=== PATIENT | female | born 1930 | race Caucasian/White ===

== ENCOUNTER → 2018-05-17 | Emergency (ER) | payer MEDICARE, BC ==
[~2018-05-17] MED LIST: ACETAMINOPHEN 325 MG TABLET PO ONE; ACETAMINOPHEN 325 MG TABLET PO PRN; AMLODIPINE BESYLATE 5 MG TABLET PO SCH; ASPIRIN 81 MG TABLET, CHEWABLE PO ONE; ASPIRIN 81 MG TABLET, ENT COATED PO SCH; ATORVASTATIN CALCIUM 10 MG TABLET PO ONE; CARBAMAZEPINE 200 MG TABLET ONE; CARBAMAZEPINE 200 MG TABLET PO ONE; CARBAMAZEPINE 200 MG TABLET PO SCH; DIAZEPAM 5 MG TABLET PO ONE; ENOXAPARIN SODIUM INJ 60 MG/0.6 ML DISP.SYRIN SUBCUT SCH; FAMOTIDINE 20 MG TABLET PO SCH; MAGNESIUM HYDROXIDE SUSP 30 ML UDCUP PO ONE; TRIAMTERENE/HYDROCHLOROTHIAZID 75-50 MG TABLET PO SCH; TRIAMTERENE/HYDROCHLOROTHIAZIDE 37.5-25 MG TABLET ONE
--- NOTE | 2018-05-17 16:26 | ER Document Report ---
ED Fall - General Chief Complaint: Fall Stated Complaint: FALL,HEAD PAIN Time Seen by Provider: 05/17/18 15:54 Notes: This is an 87-year-old female to the emergency department chief complaint of syncope. Patient states that she was getting out of the bath. Fell down. Fell forward. Hit her head. Does not remember what happened. Has a little bit of pain above the right eye. No other major injuries. Denies any chest pain or shortness of breath. Has had syncope in the past. Denies any headache , vomiting, nausea, vision loss or other issues at this time. TRAVEL OUTSIDE OF THE [place] IN LAST 30 DAYS: No - HPI Occurred: Just prior to arrival Where: Home Context: Fell from standing Associated symptoms: Lost consciousness Location of injury/pain: Face Severity: Mild Pain Level: 0 - Related data Allergies/Adverse Reactions: Iodinated Contrast- Oral and IV Dye [IV Dye, Iodine Containing] Allergy ( Intermediate, Verified 05/17/18 15:27) UPSET STOMACH propoxyphene HCl [From Darvon] Allergy (Unknown, Verified 05/17/18 15:27) clarithromycin [From Biaxin] Allergy (Verified 05/17/18 15:27) codeine [Codeine] Allergy (Verified 05/17/18 15:27) levofloxacin [From Levaquin] Allergy (Verified 05/17/18 15:27) HEART PALPITATIONS meperidine HCl [From Demerol] Allergy (Verified 05/17/18 15:27) propoxyphene napsylate [From Darvocet-N 100] Allergy (Verified 05/17/18 15:27) Sulfa (Sulfonamide Antibiotics) Allergy (Verified 05/17/18 15:27) Past Medical History - General Information source: Patient, Relative - Social History Smoking Status: Never Smoker Frequency of alcohol use: None Drug Abuse: None Lives with: Family Family History: Reviewed & Not Pertinent Patient has suicidal ideation: No Patient has homicidal ideation: No - Past Medical History Cardiac Medical History: Reports: Hx Hypercholesterolemia, Hx Hypertension, Hx Heart Murmur Denies: Hx Coronary Artery Disease, Hx Heart Attack Pulmonary Medical History: Denies: Hx Asthma, Hx Bronchitis, Hx COPD, Hx Pneumonia, Hx Tuberculosis Neurological Medical History: Denies: Hx Cerebrovascular Accident, Hx Seizures Renal/ Medical History: Reports: Hx Kidney Stones. Denies: Hx Peritoneal Dialysis GI Medical History: Reports: Hx Gastroesophageal Reflux Disease, Hx Ulcer Musculoskeletal Medical History: Reports Hx Arthritis Psychiatric Medical History: Reports: Hx Depression Past Surgical History: Reports: Hx Appendectomy, Hx Hysterectomy. Denies: Hx Pacemaker - Immunizations Hx Diphtheria, Pertussis, Tetanus Vaccination: Yes Review of Systems - Review of Systems Notes: Constitutional: denies: Chills, Diaphoresis, Fever, Malaise, Weakness EENT: denies: Eye discharge, Blurred vision, Tearing, Double vision, Nose congestion, Nose discharge, Throat swelling, Mouth pain. Contusion above the right eye. Cardiovascular: denies: Palpitations, Heart racing, Orthopnea, Dyspnea, Chest pain. Reports syncopal episode Respiratory: denies: Cough, Hurts to breathe, Wheezing, Shortness of breath Gastrointestinal: denies: Abdominal pain, Diarrhea, Nausea, Vomiting, Black stools, bright red blood in stool Genitourinary: denies: Burning, Dysuria, Discharge, Frequency, Flank pain, Hematuria Musculoskeletal: denies: Joint pain, Joint swelling, Muscle pain, Muscle stiffness, back pain Hematologic/Lymphatic: denies: Anemia, Easy bleeding, Easy bruising, Blood clots Neurological/Psychological: denies: Confusion, Dementia, Depression, Loss of consciousness Skin: No lesions, no masses, no skin breakdown, no abscesses Physical Exam - Vital signs Vitals: Temp 97.7 F 05/17/18 23:33 Interpretation: Bradycardic - General General appearance: Appears well, Alert - HEENT Head: Normocephalic, Atraumatic Eyes: Normal Conjunctiva: Other Pupils: PERRL - Respiratory Respiratory status: No respiratory distress Chest status: Nontender Breath sounds: Normal Chest palpation: Normal - Cardiovascular Rhythm: Bradycardia Heart sounds: Normal auscultation Murmur: No - Abdominal Inspection: Normal Distension: No distension Bowel sounds: Normal Tenderness: Nontender Organomegaly: No organomegaly - Back Back: Normal, Nontender - Extremities General upper extremity: Normal inspection, Nontender, Normal color, Normal ROM , Normal temperature General lower extremity: Normal inspection, Nontender, Normal color, Normal ROM , Normal temperature, Normal weight bearing. No: Marcela's sign - Neurological Neuro grossly intact: Yes Cognition: Normal Orientation: AAOx4 Tania Coma Scale Eye Opening: Spontaneous [place] Coma Scale Verbal: Oriented [place] Bud Coma Scale Motor: Obeys Commands Red Bud Coma Scale Total: 15 Speech: Normal Motor strength normal: LUE, RUE, LLE, RLE Sensory: Normal - Psychological Associated symptoms: Normal affect, Normal mood - Skin Skin Temperature: Warm Skin Moisture: Dry Skin Color: Normal Course - Re-evaluation Re-evalutation: 05/17/18 17:07 Patient has heart rates that are fluctuating between the 40s-80s. Initial cardiac troponin slightly elevated at 0.070. Aspirin has been given. We did want to do a CT scan of the head however patient has refused. Definitely gives a very concerning story at this time for syncope with elevated troponin and bradycardia arrhythmia. 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 Flynn he is accepted the patient. He will not accept patient unless she has a CT head. CT head has been reordered. Patient now agrees. Second troponin pending at 815. 05/17/18 20:39 Laboratory 05/17/18 05/17/18 05/17/18 15:30 15:40 15:40 WBC 6.6 RBC 4.71 Hgb 14.8 Hct 43.6 MCV 93 MCH 31.4 MCHC 33.9 RDW 13.2 Plt Count 195 Seg Neutrophils % 75.7 Lymphocytes % 13.9 Monocytes % 8.8 Eosinophils % 1.0 Basophils % 0.6 Absolute Neutrophils 5.0 Absolute Lymphocytes 0.9 Absolute Monocytes 0.6 Absolute Eosinophils 0.1 Absolute Basophils 0.0 Sodium 140.4 Potassium 4.1 Chloride 101 Carbon Dioxide 28 Anion Gap 11 BUN 34 H Creatinine 0.76 Est GFR ( Amer) > 60 Est GFR (Non-Af Amer) > 60 Glucose 110 Calcium 9.2 Total Bilirubin 0.3 Direct Bilirubin 0.3 Neonat Total Bilirubin Not Reportable Neonat Direct Bilirubin Not Reportable Neonat Indirect Bili Not Reportable AST 51 H ALT 42 Alkaline Phosphatase 109 Creatine Kinase 60 CK-MB (CK-2) Troponin I Total Protein 6.7 Albumin 4.2 Urine Color YELLOW Urine Appearance SLIGHTLY-CLOUDY Urine pH 7.0 Ur Specific Bastian 1.009 Urine Protein NEGATIVE Urine Glucose (UA) NEGATIVE Urine Ketones NEGATIVE Urine Blood NEGATIVE Urine Nitrite NEGATIVE Urine Bilirubin NEGATIVE Urine Urobilinogen NEGATIVE Ur Leukocyte Esterase NEGATIVE Urine WBC (Auto) 1 Urine RBC (Auto) 0 Urine Mucus (Auto) RARE Urine Ascorbic Acid 20 H 05/17/18 05/17/18 15:40 19:06 WBC RBC Hgb Hct MCV MCH MCHC RDW Plt Count Seg Neutrophils % Lymphocytes % Monocytes % Eosinophils % Basophils % Absolute Neutrophils Absolute Lymphocytes Absolute Monocytes Absolute Eosinophils Absolute Basophils Sodium Potassium Chloride Carbon Dioxide Anion Gap BUN Creatinine Est GFR ( Amer) Est GFR (Non-Af Amer) Glucose Calcium Total Bilirubin Direct Bilirubin Neonat Total Bilirubin Neonat Direct Bilirubin Neonat Indirect Bili AST ALT Alkaline Phosphatase Creatine Kinase CK-MB (CK-2) 1.50 Troponin I 0.070 0.070 Total Protein Albumin Urine Color Urine Appearance Urine pH Ur Specific Bastian Urine Protein Urine Glucose (UA) Urine Ketones Urine Blood Urine Nitrite Urine Bilirubin Urine Urobilinogen Ur Leukocyte Esterase Urine WBC (Auto) Urine RBC (Auto) Urine Mucus (Auto) Urine Ascorbic Acid Chest X-Ray 05/17/18 16:25 IMPRESSION: No evidence of acute cardiopulmonary process. Head CT 05/17/18 19:27 IMPRESSION: MILD CHRONIC CHANGES OF ATROPHY AND MICROVASCULAR ISCHEMIA. NO ACUTE PROCESS. EVIDENCE OF ACUTE STROKE: NO. 05/18/18 00:03 I have spoken with Brittany Hutchinson again. Dr. Santos accepting. Repeat troponin slightly elevated. Will start on Lovenox, GI prophylaxis, aspirin daily, Pepcid daily, repeat labs in the a.m. Repeat EKG was performed and unchanged. Did consult with the hospitalist however he does recommend transferring the patient versus admitting her for treatment until bed is available. We are expecting a bed in the next 6-8 hours. - Vital Signs Vital signs: Temp Pulse Resp BP Pulse Ox 97.7 F 05/17/18 23:33 - Laboratory Result Diagrams: 05/17/18 15:40 05/17/18 15:40 Laboratory results interpreted by me: 05/17/18 05/17/18 05/17/18 15:30 15:40 15:40 BUN 34 H AST 51 H NT-Pro-B Natriuret Pep 629 H Urine Ascorbic Acid 20 H - EKG Interpretation by Me Additional EKG results interpreted by me: 05/17/18 19:28 Multiple atrial premature contractions, WenkeBach, no ST elevation or depression. LVH. Critical Care Note - Critical Care Note Total time excluding time spent on procedures (mins): 45 Comments: Symptomatic bradycardia, consultation with specialist, coordination of transfer of care, management while waiting for transport. Discharge - Discharge Clinical Impression: NSTEMI (non-ST elevated myocardial infarction), Syncope and collapse Condition: Good Disposition: [facility] Referrals: KARLY HESTER MD [Primary Care Provider] - Follow up as needed
[2018-05-17 16:34] LABS: ABSOLUTE EOSINOPHILS # (AUTO) 0.1 10^3/uL (0.0-0.6); ABSOLUTE LYMPHOCYTES (AUTO) 0.9 10^3/uL (0.5-4.7); ABSOLUTE MONOCYTES (AUTO) 0.6 10^3/uL (0.1-1.4); BASOPHILS % (AUTO) 0.6 % (0-2); HEMATOCRIT 43.6 % (36.0-47.0); HEMOGLOBIN 14.8 g/dL (12.0-15.5); LYMPHOCYTES % (AUTO) 13.9 % (13-45); MEAN CORPUSCULAR HEMOGLOBIN 31.4 pg (27.0-33.4); MEAN CORPUSCULAR HGB CONC 33.9 g/dL (32.0-36.0); MEAN CORPUSCULAR VOLUME 93 fl (80-97); MONOCYTES % (AUTO) 8.8 % (3-13); PLATELET COUNT 195 10^3/uL (150-450); RED BLOOD COUNT 4.71 10^6/uL (3.72-5.28); RED CELL DISTRIBUTION WIDTH 13.2 % (11.5-14.0); SEGMENTED NEUTROPHILS % (AUTO) 75.7 % (42-78); TOTAL CELLS COUNTED % (AUTO) 100 %; WHITE BLOOD COUNT 6.6 10^3/uL (4.0-10.5)
[2018-05-17 16:40] LABS: BLOOD UREA NITROGEN 34 mg/dL (7-20); CALCIUM 9.2 mg/dL (8.4-10.2); CARBON DIOXIDE 28 mmol/L (22-30); CHLORIDE 101 mmol/L (98-107); GLUCOSE 110 mg/dL (75-110); POTASSIUM 4.1 mmol/L (3.6-5.0); SODIUM 140.4 mmol/L (137-145)
[2018-05-17 16:41] LABS: ALANINE AMINOTRANSFERASE 42 U/L (9-52); ALBUMIN 4.2 g/dL (3.5-5.0); ALKALINE PHOSPHATASE 109 U/L (38-126); ANION GAP 11 (5-19); ASPARTATE AMINO TRANSFERASE 51 U/L (14-36); BILIRUBIN,DIRECT 0.3 mg/dL (0.0-0.4); BILIRUBIN,TOTAL 0.3 mg/dL (0.2-1.3); CREATINE KINASE 60 U/L (30-135); TOTAL PROTEIN 6.7 g/dL (6.3-8.2)
[2018-05-17 16:52] LABS: CREATINE KINASE MB 1.5 ng/mL (<4.55)
[2018-05-17 16:57] LABS: TROPONIN I 0.07 ng/mL
--- NOTE | 2018-05-17 17:07 | RADIOLOGY REPORT (SQ) ---
EXAM DESCRIPTION: CHEST SINGLE VIEW COMPLETED DATE/TIME: 05/17/2018 4:54 pm REASON FOR STUDY: syncope COMPARISON: 09/06/2011 EXAM PARAMETERS: NUMBER OF VIEWS: One view. TECHNIQUE: Single frontal radiographic view of the chest acquired. RADIATION DOSE: NA LIMITATIONS: None. FINDINGS: LUNGS AND PLEURA: Emphysematous change with hyperinflation. No focal airspace disease, pl eural effusion or pneumothorax. MEDIASTINUM AND HILAR STRUCTURES: No masses. Contour normal. HEART AND VASCULAR STRUCTURES: Normal heart size. Ectatic thoracic aorta. BONES: No acute findings. HARDWARE: None in the chest. OTHER: No other significant finding. IMPRESSION: No evidence of acute cardiopulmonary process. TECHNICAL DOCUMENTATION: JOB ID: [id number] [employer]- All Rights Reserved Reading location - IP/workstation name: [email or web address]
[2018-05-17 17:55] LABS: APPEARANCE,URINE SLIGHTLY-CLOUDY; BILIRUBIN,URINE NEGATIVE (NEGATIVE); COLOR,URINE YELLOW; GLUCOSE, URINE NEGATIVE (NEGATIVE); KETONES,URINE NEGATIVE (NEGATIVE); LEUKOCYTE ESTERASE,URINE NEGATIVE (NEGATIVE); NITRITE,URINE NEGATIVE (NEGATIVE); PROTEIN,URINE NEGATIVE (NEGATIVE); URINE SPECIFIC GRAVITY 1.009; UROBILINOGEN,URINE NEGATIVE mg/dL (<2.0)
--- NOTE | 2018-05-17 20:13 | RADIOLOGY REPORT (SQ) ---
EXAM DESCRIPTION: CT HEAD WITHOUT COMPLETED DATE/TIME: 05/17/2018 8:04 pm REASON FOR STUDY: fall, trauma COMPARISON: 01/11/2015 TECHNIQUE: Axial images acquired through the brain without intravenous contrast. Images reviewed wi th bone, brain and subdural windows. Additional sagittal and coronal reconstructions were generated. Images stored on PACS. All CT scanners at this facility use dose modulation, iterative reconstruction, and/or weight based d osing when appropriate to reduce radiation dose to as low as reasonably achievable (ALARA). [facility]: Dose Right [facility]: CareDose [facility]: Dose Right [facility]: Teradose 4D [facility]: Smart [employer] RADIATION DOSE: CT Rad equipment meets quality standard of care and radiation dose reduction techniq ues were employed. CTDIvol: 48.5 mGy. DLP: 855 mGy-cm. mGy. LIMITATIONS: None. FINDINGS: VENTRICLES: Prominent. CEREBRUM: No masses. No hemorrhage. No midline shift. Areas of low density in the white matter mos t likely due to chronic micro-vascular ischemic change. No evidence for acute infarction. CEREBELLUM: No masses. No hemorrhage. No alteration of density. No evidence for acute infarction. EXTRAAXIAL SPACES: Mild age-related involutional change. No fluid collections. No masses. ORBITS AND GLOBE: No intra- or extraconal masses. Normal contour of globe without masses. CALVARIUM: No fracture. PARANASAL SINUSES: No fluid or mucosal thickening. SOFT TISSUES: No mass or hematoma. OTHER: No other significant finding. IMPRESSION: MILD CHRONIC CHANGES OF ATROPHY AND MICROVASCULAR ISCHEMIA. NO ACUTE PROCESS. EVIDENCE OF ACUTE STROKE: NO. TECHNICAL DOCUMENTATION: JOB ID: [id number] Quality ID # [id number]: Final reports with documentation of one or more dose reduction techniques (e.g., Au tomated exposure control, adjustment of the mA and/or kV according to patient size, use of iterative reconstruction technique) 2010 [employer]- All Rights Reserved Reading location - IP/workstation name: [email or web address]
--- NOTE | 2018-05-17 20:57 | EKG REPORT ---
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
[2018-05-18] MEDS: ENOXAPARIN SODIUM INJ 60 MG/0.6 ML DISP.SYRIN SUBCUT SCH ×2 (00:30→11:25)
[2018-05-18 06:22] LABS: HEMATOCRIT 39.8 % (36.0-47.0); HEMOGLOBIN 13.4 g/dL (12.0-15.5); MEAN CORPUSCULAR HGB CONC 33.7 g/dL (32.0-36.0); MEAN CORPUSCULAR VOLUME 92 fl (80-97); PLATELET COUNT 183 10^3/uL (150-450); RED BLOOD COUNT 4.31 10^6/uL (3.72-5.28); RED CELL DISTRIBUTION WIDTH 12.7 % (11.5-14.0); WHITE BLOOD COUNT 3.7 10^3/uL (4.0-10.5)
[2018-05-18 06:48] LABS: ANION GAP 7 (5-19); BLOOD UREA NITROGEN 26 mg/dL (7-20); CALCIUM 9.2 mg/dL (8.4-10.2); CARBON DIOXIDE 31 mmol/L (22-30); CHLORIDE 103 mmol/L (98-107); CREATINE KINASE 49 U/L (30-135); GLUCOSE 86 mg/dL (75-110); POTASSIUM 3.7 mmol/L (3.6-5.0); SODIUM 141.2 mmol/L (137-145)
[2018-05-18 06:59] LABS: CREATINE KINASE MB 1.96 ng/mL (<4.55); TROPONIN I 0.059 ng/mL
--- NOTE | 2018-05-18 10:01 | ER Document Report ---
Doctor's Note Notes: 05/18/18 09:58 Morning rounds: Chart reviewed. Patient interviewed. Patient has no complaints at this time. Patient is being evaluated for an apparent syncopal episode in which she hit her head. At first, it was believed patient may have a non-STEMI as her troponin levels were in the indeterminate zone, but the most recent values this morning are actually trending downward now from the earlier 0.07 and 0.074 down to 0.059 at 5:30 AM. Still, even though that does not appear the patient has a non-STEMI now, she does have the issue of her arrhythmia noted on her 12-lead at 1640 yesterday. She had Mobitz type I AV block as well as a left anterior fascicular block and a sinus rhythm of just 44. Repeating her twelve-lead at this time. Question if patient may need to have pacemaker. Patient is awaiting bed assignment at [facility], and none available as of about 6 AM this morning. Patient appears to be medically stable for transfer. Abigail Spangler MD 05/18/18 19:42 Patient's transport has arrived. Patient will be transferred to [facility] in [place]. Patient has remained stable throughout her stay in the department. Vital signs are all essentially normal. Patient is stable for transfer. Abigail Spangler MD
[2018-05-18 19:07] VITALS: BP 130/81
--- NOTE | 2018-05-18 21:24 | EKG REPORT ---
SEVERITY:- ABNORMAL ECG - SINUS RHYTHM LEFT ANTERIOR FASCICULAR BLOCK LVH WITH SECONDARY REPOLARIZATION ABNORMALITY ANTERIOR Q WAVES, POSSIBLY DUE TO LVH BORDERLINE PROLONGED QT INTERVAL : Confirmed by: Shea Sherman MD 18-May-2018 21:24:20
--- NOTE | 2018-05-18 21:25 | EKG REPORT ---
SEVERITY:- ABNORMAL ECG - SINUS RHYTHM LEFT ANTERIOR FASCICULAR BLOCK LVH WITH SECONDARY REPOLARIZATION ABNORMALITY ANTERIOR Q WAVES, POSSIBLY DUE TO LVH : Confirmed by: Shea Sherman MD 18-May-2018 21:24:38
== END | disposition short-term general hospital (02) ==
LOC: ER 15:05
DX: I21.4 Non-ST elevation (NSTEMI) myocardial infarction (principal); I44.0 Atrioventricular block, first degree; I44.4 Left anterior fascicular block; R51 Headache; W19.XXXA Unspecified fall, initial encounter; Y93.89 Activity, other specified; Y92.002 Bathroom of unspecified non-institutional (private) residence as the place of occurrence of the external cause; R00.1 Bradycardia, unspecified; R55 Syncope and collapse; Z91.041 Radiographic dye allergy status; Z88.5 Allergy status to narcotic agent; Z88.1 Allergy status to other antibiotic agents
CPT/HCPCS: 93005; 99291; 96372; 36415; 82553; 82550; 85025; 85027; 80048; 80053; 81001; 84484; 83880; 71045; 70450; 93010; A9270; J1650; J3490